=== PATIENT | male | born 1975 ===

== ENCOUNTER 2017-10-16 10:51 | Emergency (ER) | payer MEDICAID ==
[2017-10-16 10:58] VITALS: PULSE 121
[2017-10-16 10:59] VITALS: BMI 28.5
[2017-10-16 11:07] VITALS: BP 154/80; RESP 16; TEMP 98; O2SAT 100
--- NOTE | 2017-10-16 11:36 | ED PDOC ---
HPI: CCC, URI, Sore Throat Time Seen by Provider: 10/16/17 11:03 Chief Complaint (Nursing): ENT Problem Chief Complaint (Provider): Sore throat for 3 days History Per: Patient History/Exam Limitations: no limitations Onset/Duration Of Symptoms: Days Current Symptoms Are (Timing): Still Present Additional Complaint(s): 42 yo male with no medical problems presents with sore throat for 3 days. Pain bilateral and worse with swallowing. Pt reports fever at home but has not been taking his temperature. No medications today for fever/symptoms. Past Medical History Reviewed: Historical Data, Nursing Documentation, Vital Signs Vital Signs: Last Vital Signs Temp 98.0 F 10/16/17 11:06 Pulse 121 H 10/16/17 11:06 Resp 16 10/16/17 11:06 BP 154/80 H 10/16/17 11:06 Pulse Ox 100 10/16/17 12:05 - Medical History PMH: No Chronic Diseases - Surgical History Surgical History: No Surg Hx - Family History Family History: States: No Known Family Hx - Living Arrangements Living Arrangements: With Family - Social History Current smoker - smoking cessation education provided: No Alcohol: None - Home Medications Home Medications: Ambulatory Orders Medication Instructions Recorded Amoxicillin 875 mg PO BID #20 tab 10/16/17 - Allergies Allergies/Adverse Reactions: Allergies Allergy/AdvReac Type Severity Reaction Status Date / Time No Known Allergies Allergy Verified 10/16/17 11:06 Review of Systems ROS Statement: Except As Marked, All Systems Reviewed And Found Negative Constitutional: Negative for: Fever, Chills ENT: Positive for: Throat Pain, Throat Swelling Respiratory: Negative for: Cough, Shortness of Breath Physical Exam - Reviewed Nursing Documentation Reviewed: Yes Vital Signs Reviewed: Yes - Physical Exam Appears: Positive for: Well, Non-toxic, No Acute Distress Head Exam: Positive for: ATRAUMATIC, NORMAL INSPECTION, NORMOCEPHALIC Skin: Positive for: Normal Color, Warm, DRY Eye Exam: Positive for: Normal appearance ENT: Positive for: Normal ENT Inspection, Pharynx Is (Erythema ), Pharyngeal Erythema, Tonsillar Exudate, Tonsillar Swelling, Other (Airway patent ) Neck: Positive for: Normal, Painless ROM Cardiovascular/Chest: Positive for: Regular Rate, Rhythm Respiratory: Positive for: CNT, Normal Breath Sounds Back: Positive for: Normal Inspection Extremity: Positive for: Normal ROM Neurologic/Psych: Positive for: Alert, Oriented - ECG O2 Sat by Pulse Oximetry: 100 Medical Decision Making Medical Decision Making: HR 96 on d/c Disposition - Clinical Impression Clinical Impression: Strep throat - Patient ED Disposition Is Patient to be Admitted: No - Disposition Disposition: Routine/Home Disposition Time: 12:44 Condition: GOOD Prescriptions: Amoxicillin 875 mg PO BID #20 tab Instructions: Strep Throat (DC) Forms: [facility] (Macedonian) Print Language: TAMAZIGHT
== END 2017-10-16 13:18 | disposition home or self-care (01) ==
LOC: H.ER 10:51
DX: J02.0 Streptococcal pharyngitis (principal)
CPT/HCPCS: 96372; 99283; J1100